=== PATIENT | female | born 1980 | race Caucasian/White ===

== ENCOUNTER 2020-09-21 09:37 | Outpatient (CLI) | payer BC | END 2020-09-21 09:38 | disposition home or self-care (01) | LOC: BICRAD 09:37 | PROVIDERS: ATTEND Specialist | DX: M77.01 Medial epicondylitis, right elbow (principal); M25.511 Pain in right shoulder; M77.8 Other enthesopathies, not elsewhere classified ==

== ENCOUNTER 2023-07-11 10:48 | Outpatient (CLI) | payer BC | END 2023-07-11 10:49 | disposition home or self-care (01) | LOC: BICRAD 10:48 | PROVIDERS: ATTEND Family Medicine | DX: M19.90 Unspecified osteoarthritis, unspecified site (principal) ==